=== PATIENT | male | born 1980 | race Two or more races ===

== ENCOUNTER → 2020-03-09 10:34 | Outpatient (BNVA) | payer SELFPAY | PROVIDERS: Visit Provider Physician Assistant ==

== ENCOUNTER 2020-10-21 10:46 | Emergency (ER) | payer MEDICAID, SELFPAY ==
[2020-10-21 10:56] VITALS: BP 121/71; PULSE 89; RESP 16; TEMP 36.2; O2SAT 98; BMI 37.5
--- NOTE | 2020-10-21 11:09 | ED_ITS ---
HPI - Back Pain/Injury General Chief Complaint: Back Pain/Injury Stated Complaint: back pain Time Seen by Provider: 10/21/20 11:09 Source: patient Mode of arrival: ambulatory Limitations: no limitations History of Present Illness HPI Narrative: 40 y/o male presenting to the ER from home c/o lower back pain since yesterday. 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 He has some discomfort in his right lower back at the time but was able to go to sleep ok. This morning he woke up with worsening pain to his right lower back, worse with movement, walking and sitting. Pain is barely there when he is laying flat. No numbness, tingling or weakness. No incontinence or fevers. MD elicited complaint: back pain and back injury Onset (ago): day(s) (1) Timing: intermittent Severity: severe Similar Symptoms Previously: No Quality: aching and spasming Location: right lower back Radiation: buttocks Exacerbating factors: movement, sitting upright and walking Relieving factors: immobilization Context: other (while at work pushing equiptment ) Associated symptoms: denies other symptoms Treatments prior to arrival: NSAIDS Work related injury: Yes Related Data Previous Rx's Medication Instructions Recorded cyclobenzaprine 10 mg PO TID PRN #10 tab 10/21/20 hydrocodone-acetaminophen 1 tab PO Q6H PRN #6 tab 10/21/20 ibuprofen 800 mg PO Q8H PRN #15 tab 10/21/20 lidocaine [Lidoderm] 1 patch TOPICAL DAILY #15 ea 10/21/20 Allergies Allergy/AdvReac Type Severity Reaction Status Date / Time dexamethasone [From Decadron] Allergy Shakiness Verified 10/21/20 10:56 Review of Systems Review of Systems: Constitutional: No Fever, No Chills Gastrointestinal: No Nausea, No Vomiting, No Diarrhea, No abdominal Pain Genitourinary: No Dysuria, No Urinary Frequency, No Hematuria Musculoskeletal: No joint pain, + Myalgias Skin: No Skin Lesions, No rash Neuro: No Weakness, No Numbness Psych: No Anxiety/Panic, No Depression Heme/Lymph: No Bruising PMFSH Past Medical History Attestation statement: The following information was validated with the patient. Medical History Asthma Diabetes Surgical History (Updated 10/21/20 @ 11:00 by Earnestine Sinclair) S/P rotator cuff repair Social History Social History Advance Directives: Yes Advance Directives Information Provided: Yes Advance Directives on File: No Physical Exam Vital Signs: Vital Signs: Last Vital Signs Temp 97.1 F 10/21/20 10:56 Pulse 89 10/21/20 10:56 Resp 16 10/21/20 10:56 BP 121/71 10/21/20 10:56 Pulse Ox 98 10/21/20 10:56 Body Mass Index 37.5 Appearance: Alert. Oriented X3. No acute distress. HEENT: normal inspection CVS: Normal heart rate and rhythm. Pulses normal. Respiratory: No respiratory distress. Skin: Skin warm and dry. Normal skin color. Normal skin turgor. No rashes. Abd: obese, soft, NT/ND, +BS Back: upper lumbar area with soft tissue tenderness and spasm. no spinal tenderness. +straight leg raise on the left Extremities: atraumatic, no LE edema Neuro: Oriented X 3. No motor deficit. No sensory deficit. Ambulates with a slight limp with use of a cane Course Course Course Narrative: 40 y/o male presenting with acute onset of right lower back pain after a minor injury at work yesterday. Clinical presentation and examination are consistent with strain of the lumbar region. No urinary symptoms and no red flag symptoms of LBP. He is neurologicall intact. Will treat for muscular pain with NSAID, muscle relaxer, Lidoderm and PRN Vidoden for breakthrough pain. Patient counseled on course and management of back pain and is encouraged to rest and follow up with his PCP. Discharge Plan Discharge Clinical Impression: Strain of lumbar region Qualifiers: Encounter type: initial encounter Qualified Code(s): S39.012A - Strain of mus meghna, fascia and tendon of lower back, initial encounter Patient Disposition: Home, Self-Care Instructions: Low Back Strain (ED), Lower Back Exercises (ED) Additional Instructions: No bending, lifting or twisting. Use ice several times per day for 20 minutes at a time for the next 48 hours and then change to heat. Take medications as prescribed to help with pain and discomfort. Follow up with your Primary Care Doctor this week. If your pain worsens, if you develop new numbness, tingling, weakness, loss of function or incontinence call 911 or come back to the ER right away for evaluation. Prescriptions: New cyclobenzaprine 10 mg tablet 10 mg PO TID PRN (Reason: muscle spasm) Qty: 10 RF: 0 ibuprofen 800 mg tablet 800 mg PO Q8H PRN (Reason: pain) Qty: 15 RF: 0 lidocaine [Lidoderm] 5 % adhesive patch,medicated 1 patch topical DAILY Qty: 15 RF: 0 hydrocodone-acetaminophen 5-325 mg tablet 1 tab PO Q6H PRN (Reason: pain) Qty: 6 RF: 0 Stand Alone Forms: Work/School Release
[2020-10-21] MEDS: HYDROcodone Bit/Acetam 5/325 TABLET 1 TAB PO (11:38)
[2020-10-21] MEDS: Lidocaine 4 % Patch ADH..PATCH 1 PATCH TRANSDERMA (11:38)
== END 2020-10-21 11:49 | disposition home or self-care (01) ==
PROVIDERS: Emergency Provider Emergency Medicine
DX: S39.012A Strain of muscle, fascia and tendon of lower back, initial encounter (principal); E11.9 Type 2 diabetes mellitus without complications; J45.909 Unspecified asthma, uncomplicated; X50.1XXA Overexertion from prolonged static or awkward postures, initial encounter; Y93.9 Activity, unspecified; Y92.410 Unspecified street and highway as the place of occurrence of the external cause; Y99.0 Civilian activity done for income or pay
CPT/HCPCS: 99283

== ENCOUNTER → 2022-12-11 14:12 | Outpatient (BNVA) | payer SELFPAY | PROVIDERS: Visit Provider Physician Assistant Medical | DX: Z02.79 Encounter for issue of other medical certificate (principal) ==